=== PATIENT | female | born 1965 | race Caucasian/White ===

== ENCOUNTER 2016-05-23 12:20 | Emergency (ER) | payer MEDICAID, OTHER ==
[~2016-05-23] VITALS: Wt 76.0 kg
[2016-05-23] MEDS ORDERED: ALBUTEROL 0.5% (NEB) 2.5 MG/0.5 ML AMP HHN STA (13:02)
--- NOTE | 2016-05-23 13:17 | ERD ---
ER Documentation Chief Complaint Date/Time DATE: 05/23/16 TIME: 12:55 Chief Complaint ear pain coughing and upper back pain for the past few weeks. not better HPI 50 y/o female presents to ED for bilateral ear pain, productive cough, left upper back pain, fever. Patient reports that she has been having on and off fever for about 2 weeks. States that she never took her temperature but she felt like she has a fever. Reports bilateral ear pain on and off for the past week. Also added that she has a productive (greenish/yellowish) cough that is on and off for about 2 weeks. Reports left upper back pain that is described as dull/achy that radiates to her left shoulder and left breast with a pain rate of 4/10 at this time. Her left upper back/shoulder/left breast pain is worse on range of motion. Only medications taken at home was in ibuprofen. Patient also stated that she was exposed to her sinuses same symptoms. Denies headache, loss of consciousness, dizziness, blurry vision, changes in vision, photophobia, facial pain, throat pain, difficulty swallowing, neck pain , shoulder pain, hemoptysis, abdominal pain, loss of appetite, nausea, vomiting , hematochezia, diarrhea, constipation, urinary symptoms, bladder and bowel incontinences, extremity weakness, extremity tenderness, trauma, numbness or tingling sensation, difficulty walking, recent travel, recent exposure to illness, recent antibiotic use in the last 3 months, chills. Allergy: Penicillin PMH: Denies Family medical history: Reports that his uncle of heart problem last year. Medications: Ibuprofen. Surgery: Denies Primary Social History: Does not work at this time. Occasionally drinks alcoholic beverages. Stated that she has not drink any alcohol for a few months. Denies smoking, use of illegal drugs. ROS All systems reviewed and are negative except as per history of present illness. Medications Home Meds Active Scripts Guaifenesin* (Robitussin*) 100 Mg/5 Ml Syrup, 100 MG PO Q4H Y for COUGH for 7 Days, ML Prov:AMBROSIOROMAINMATIPA Dona 05/23/16 Albuterol Sulfate* (Proair HFA*) 8.5 Gm Hfa.aer.ad, 2 PUFF INH Q4, #1 INHALER Prov:MARY VASQUEZ 05/23/16 Azithromycin* (Zithromax*) 250 Mg Tablet, 250 MG PO .ZPACK DIRECTED, #6 TAB TAKE 500 MG (2 TABS) THE FIRST DAY THEN 250 MG (1 TAB) DAYS 2-5 Prov:MARY VASQUEZ 05/23/16 Allergies Allergies: Coded Allergies: Penicillins (Verified Allergy, Unknown, 09/16/14) PMhx/Soc Hx Alcohol Use: No Hx Substance Use: No Hx Tobacco Use: No Physical Exam Vitals Vital Signs Date Time Temp Pulse Resp B/P Pulse Ox O2 Delivery O2 Flow Rate FiO2 05/23/16 13:32 82 17 98 21 05/23/16 12:25 99.0 85 20 146/84 99 Physical Exam CONSTITUTIONAL: Well-appearing; well-nourished; in no apparent distress. HEAD: Normocephalic; atraumatic. EYES: Conjunctiva clear, sclera non-icteric, EOM intact. PERRL Ears: Hearing intact. EACs clear, TMs non-bulging, non-inflamed, translucent & mobile, ossicles normal appearance, No obstructions, no erythema, no discharges Nose: No obstructions. No polyps. No external lesions. Mucosa non-inflamed. No external lesions, septum and turbinates normal. No rhinorrhea. No discharges. Frontal sinus is non-tender to palpation. Maxillary sinus is non-tender to palpation. MOUTH: Moist mucous membranes, no lesion, no obstructions, no vesicles, no thrush, patent airway Throat: Uvula in midline. Right tonsil is +1 with no erythema, no exudate. Left tonsil is +1 with no erythema, no exudate. Tolerating secretions well. Good gag reflex. Patent airway. Neck: Supple, without lesions, bruits, or adenopathy. No mass. Thyroid non- enlarged and non-tender to palpation. CHEST: Symmetrical chest. Respirations even and not labored. No retractions noted. CARDIOVASCULAR: Normal S1, S2. RRR. No murmurs, gallops. RESPIRATORY: Normal chest excursion with respiration; no wheezes, rhonchi, or rales. Breathing even and unlabored. Speaking in clear, full, and complete sentences w/ ease. Mild wheezing to left upper lobe on auscultation. ABDOMEN: Normal bowel sounds normal. Soft, round, non-distended, non-guarding, no tenderness, no rebound, no organomegaly, no masses, no pulsating abdominal mass. No hernia. No peritoneal signs. : No CVA tenderness. BACK: Symmetrical shoulder. Spine is midline without deformity, tenderness. No evidence of trauma or deformity. PELVIS: Stable pelvis. No evidence of trauma or deformity. MUSCULOSKELETAL: Left upper back/left shoulder/left breast pain on range of motion. No obvious deformity or swelling. Normal gait and station. No misalignment, asymmetry, crepitation, defects, tenderness, masses, effusions, decreased range of motion, instability, atrophy or abnormal strength or tone in the head, neck, spine, ribs, pelvis or extremities. No calf tenderness. NEUROVASCULAR: Distal pulses are present. Pedal pulse are present, equal, and normal. Capillary refills are < 2 seconds. NEUROLOGIC: Alert and oriented x4. Speaks full and clear sentences. Cranial Nerves II-XII normal. Sensation to pain, touch, and proprioception normal. Grossly unremarkable. No neurologic deficits. Romberg test is negative. PSYCHOLOGICAL: The patients mood and manner are appropriate. No hallucinations , delusions. Not SI. Not HI. Has the capacity to decide for self SKIN: Normal for age and ethnicity; warm; dry; good turgor; no apparent lesions or exudates. No rashes, hives, discoloration. Intact. Results 24 hrs Current Medications Medications (Trade) Dose Ordered Sig/Toan Route PRN Reason Start Time Stop Time Status Last Admin Dose Admin Albuterol (Proventil 0.5% (Neb)) 5 mg ONCE STAT HHN 05/23/16 13:02 05/23/16 13:05 DC 05/23/16 13:29 Procedures/MDM Examination: Unremarkable examination except mild congestion, wheezing left upper lobe. MUSCULOSKELETAL: Left upper back/left shoulder/left breast pain on range of motion. No obvious deformity or swelling. Normal gait and station. No misalignment, asymmetry, crepitation, defects, tenderness, masses, effusions , decreased range of motion, instability, atrophy or abnormal strength or tone in the head, neck, spine, ribs, pelvis or extremities. No calf tenderness. Case and medical management was discussed with supervising physician, Dr. Ramakrishna Sanchez. He agreed with my plan of care and follow-up care. Disease process, medical treatment was explained to the patient. She verbalized understanding and agreed with the diagnostic tests, medical treatment , and follow-up care. EKG: Normal sinus rhythm with rate of 70. Radiology: Chest x-ray Impression no evidence for active cardiopulmonary disease. Treatment: Albuterol 5 mg breathing treatment Re-evaluation: Patient tolerated the breathing treatment. Respirations even and unlabored. Lung sounds are clear to auscultation bilaterally. Consultation: None Differential diagnosis: Acute myocardial infarction versus pneumonia versus bronchitis versus upper respiratory infection versus otitis media versus otitis externa versus sinusitis Medical decision makin50 y/o female presents to ED for bilateral ear pain, productive cough, left upper back pain, fever. Patient reports that she has been having on and off fever for about 2 weeks. States that she never took her temperature but she felt like she has a fever. Reports bilateral ear pain on and off for the past week. Also added that she has a productive (greenish/ yellowish) cough that is on and off for about 2 weeks. Reports left upper back pain that is described as dull/achy that radiates to her left shoulder and left breast with a pain rate of 4/10 at this time. Her left upper back/shoulder/ left breast pain is worse on range of motion. Only medications taken at home was in ibuprofen. Patient also stated that she was exposed to her sinuses same symptoms. Medications prescribed are the following: Azithromycin, ProAir air, Robitussin Patient and family member are made aware of the side effects and adverse reactions of the medications prescribed. Instructed on when to seek emergent and medical attention in case allergic/anaphylactic reactions or severe side effects and or adverse reactions to medications. Patient and family member verbalized understanding. Patient instructed Instructed to follow-up with his PCP in 24-48 hours. Instructed to Call 911 for chest pain, shortness of breath. Advised to come back here in ED as soon as possible for severity of symptoms which includes but not limited to: any new symptoms; shortness of breath/difficulty of breathing; cardiovascular changes; severe gastrointestinal symptoms; signs and symptoms of bleeding and or infection; signs of compartment syndrome/neurovascular changes; neurological changes/deficits. Patient and family member verbalized understanding. Upon discharge, patient is alert and oriented x 4, speaks full and clear sentences, denies pain, has no neurological deficits, has no neurovascular deficits, difficulty of breathing. Breathing even and unlabored. Lung sounds are clear to auscultation. Not in distress. Appears comfortable. Ambulatory with steady gait. Appears satisfied with care provided here in ED. Departure Diagnosis: Primary Impression: Bronchitis Condition: Good Additional Instructions: Followed PCP in 24-48 hours. MARY VASQUEZ May 23, 2016 13:15
--- NOTE | 2016-05-23 13:54 | RADRPT ---
PROCEDURE: XR Chest. CLINICAL INDICATION: Cough TECHNIQUE: PA and Lateral views of the chest were obtained. COMPARISON: None. FINDINGS: The cardiomediastinal silhouette is within normal limits..The lungs are clear though pleural effusio n or focal consolidation. No pneumothorax. The osseous structures and soft tissues are unremarkable. IMPRESSION: No evidence for active cardiopulmonary disease. RPTAT:AAJJ Naina Mckeon Physician Date Time Electronically viewed and signed by Naina Mckeon Physician on 05/23/2016 13:54 THEODORE/
[2016-05-23] MEDS ORDERED: ALBU8.5H3 INH (14:03)
[2016-05-23] MEDS ORDERED: GUAI-637 PO (14:03)
[2016-05-23] MEDS ORDERED: AZIT250T94 PO (14:03)
== END 2016-05-23 14:12 | disposition home or self-care (01) ==
LOC: FTE 12:20
DX: J20.9 Acute bronchitis, unspecified (principal); M54.6 Pain in thoracic spine; R05 Cough
CPT/HCPCS: 71020; 94664; Z7610; 93005

== ENCOUNTER 2017-11-12 07:47 | Emergency (ER) | END 2017-11-12 11:40 | disposition home or self-care (01) ==